=== PATIENT | female | born 1960 | race Caucasian/White ===

== ENCOUNTER → 2016-06-27 | Outpatient (CLI) | payer BC ==
--- NOTE | 2016-06-27 10:06 | REP ---
DIAGNOSTIC MAMMOGRAM RIGHT BREAST: Diagnostic mammogram right breast performed in the MLO and CC projections and compared to prior studies most recent of which is 11/24/2015. Two subcentimeter nodules in the upper outer quadrant of the right breast are stable. The more anterior and centrally located nodule is felt to represent a cyst by prior ultrasound 11/24/2015. No new nodules are seen and there are no clustered microcalcifications. IMPRESSION: ACR 3 probably benign. Two stable subcentimeter nodular opacities in the upper outer quadrant of the right breast. Recommend followup bilateral mammogram November 2016. BI-RADS/ACR category 3 mammogram. Probably benign findings. Initial short-term followup (usually 6 month) examination. This mammogram was interpreted with the aid of an FDA-approved computer-aided detection system. The patient states that she/he has not had a clinical breast exam in over a year. Patient letter M3. Signed by Seferino Horn MD 06/27/2016 04:21 P
== END ==
LOC: M RAD 09:20
PROVIDERS: ATTEND Nurse Practitioner Family
DX: R92.8 Other abnormal and inconclusive findings on diagnostic imaging of breast (principal)

== ENCOUNTER → 2018-02-14 | Outpatient (CLI) | payer BC | LOC: M WHC 12:41 | DX: Z12.31 Encounter for screening mammogram for malignant neoplasm of breast (principal); Z78.0 Asymptomatic menopausal state | CPT/HCPCS: 77067 ==

== ENCOUNTER → 2018-02-14 | Outpatient (REF) | payer BC ==
[2018-02-16 14:13] LABS: HPV HYBRID CAPTURE II Negative (Negative)
== END ==
LOC: M SFHCWAGY 13:27
DX: Z12.4 Encounter for screening for malignant neoplasm of cervix (principal)
CPT/HCPCS: G0123

== ENCOUNTER → 2019-04-23 | Outpatient (CLI) | payer BC ==
--- NOTE | 2019-04-23 12:45 | REPMRS ---
Patient History The patient states she had a clinical breast exam in 04/2019. Patient is postmenopausal. No known family history of cancer. Taking estrogen for 1 year. Digital Woman Screen Mammo: April 23, 2019 - Exam #: [id number] Bilateral CC and MLO view(s) were taken. Technologist: Ana Giron, Technologist Prior study comparison: February 14, 2018, bilateral digital woman screen mammo performed at [facility], [place]. January 22, 2017, digital mammo diagnostic bilateral, performed at [facility]. November 24, 2015, digital mammo diagnostic bilateral, performed at [facility]. FINDINGS: There are scattered fibroglandular densities. There has been no change in the appearance of the mammogram from the prior studies. There is a mild amount of scattered fibroglandular density which is fairly symmetric. There is no interval development of dominant mass, architectural distortion, or grouped microcalcification suggestive of malignancy. 3-D tomosynthesis shows no additional findings. Assessment: BI-RADS/ACR category 1 mammogram. Negative Mammogram. Recommendation Routine screening mammogram of both breasts in 1 year (for women over age 40). This patient's Lifetime Breast Cancer Risk is estimated at 9.2 %. This mammogram was interpreted with the aid of an FDA-approved computer-aided dectection system. Electronically Signed By: Pierre Hernandez MD 04/23/19 [id number]
== END ==
LOC: M WHC 09:23
PROVIDERS: ATTEND Nurse Practitioner Family
DX: Z12.31 Encounter for screening mammogram for malignant neoplasm of breast (principal)

== ENCOUNTER → 2019-07-05 | Outpatient (CLI) | payer BC | LOC: M LABSMTC 13:57 | PROVIDERS: ATTEND Family Medicine | DX: Z11.59 Encounter for screening for other viral diseases (principal); Z20.828 Contact with and (suspected) exposure to other viral communicable diseases ==

== ENCOUNTER → 2020-08-10 | Outpatient (CLI) | payer BC ==
--- NOTE | 2020-08-10 12:08 | REPMRS ---
Patient History The patient states she had a clinical breast exam in July 2020. No known family history of cancer. Taking estrogen for 1 year. No breast complaints today Patient signed the MRS sheet 1st covid vaccine 05/19/2022-[id number] does not remember which arm she had for either 2nd covid vaccine 07/01/20 Priors on PACS Patient Identification Verified Digital Woman Screen Mammo: August 10, 2020 - Exam #: [id number] Bilateral CC and MLO view(s) were taken. Technologist: Estephania Portillo, Technologist Prior study comparison: April 23, 2019, bilateral digital woman screen mammo performed at [facility]. February 14, 2018, bilateral digital woman screen mammo performed at [facility]. January 22, 2017, bilateral breast ultrasound unilateral limited, performed at [facility]. FINDINGS: There are scattered fibroglandular densities. The Volpara volumetric breast density category is:B. There is a grouping of microcalcifications in the subareolar region of the right breast which merits further evaluation. There has been no other change in the appearance of the mammogram from the prior studies. There is a mild amount of scattered fibroglandular density which is fairly symmetric. There is no other interval development of dominant mass, architectural distortion, or grouped microcalcification suggestive of malignancy. 3-D tomosynthesis shows no additional findings. Assessment: BI-RADS/ACR category 0 mammogram, Incomplete: Need additional imaging evaluation and/or prior mammograms for comparison. Recommendation Special view mammogram of the right breast (for women over age 40). This patient's [facility] Lifetime Breast Cancer Risk is estimated at 9.0 %. This mammogram was interpreted with the aid of an FDA-approved computer-aided dectection system. Electronically Signed By: Pierre Hernandez MD 08/10/20 [id number]
== END ==
LOC: M WHC 09:14
PROVIDERS: ATTEND Nurse Practitioner Women's Health
DX: R92.2 Inconclusive mammogram (principal)

== ENCOUNTER → 2020-08-10 | Outpatient (REF) | payer BC | LOC: M SFHCWAGY 13:23 | PROVIDERS: ATTEND Nurse Practitioner Women's Health | DX: Z12.4 Encounter for screening for malignant neoplasm of cervix (principal); R87.610 Atypical squamous cells of undetermined significance on cytologic smear of cervix (ASC-US) | CPT/HCPCS: 87624; G0123 ==

== ENCOUNTER → 2020-09-13 | Outpatient (CLI) | payer BC ==
--- NOTE | 2020-09-13 14:34 | REP ---
INDICATION: ADDL VIEWS/RIGHT BREAST. COMPARISON: Multiple, the latest prior screening examination of 08/10/2020 showed a grouping of calcifications in the right breast for which diagnostic digital magnified spot compression views were obtained in the CC and MLO projections TECHNIQUE: Diagnostic digital magnified spot compression views of the right breast were obtained in the CC and MLO projections over the region of interest seen on the prior screening exam. FINDINGS: There is a grouping of calcifications seen in the retroareolar region of the right breast which vary someone size, shape, and radiographic density. IMPRESSION: BIRADS/ACR category 4 mammogram. There is a grouping of calcifications seen in the right breast as described above for which biopsy is recommended. The patient letter being requested is M4 RECOMMENDATION: As above <Electronically signed by Clint Rose > 09/13/20 [id number]
== END ==
LOC: M WHC 13:48
PROVIDERS: ATTEND Nurse Practitioner Women's Health
DX: Z12.31 Encounter for screening mammogram for malignant neoplasm of breast (principal); R92.1 Mammographic calcification found on diagnostic imaging of breast
CPT/HCPCS: 77065; G0279

== ENCOUNTER → 2020-10-05 | Outpatient (CLI) | payer BC ==
[~2020-10-05] MED LIST: BASA100I SC; CLIM0.05 TD; ECOT81TA5 PO; LEVO100T5 PO; TRUL10IN SC
[2020-10-05 13:39] VITALS: BP 138/82
--- NOTE | 2020-10-05 14:22 | REP ---
INDICATION: R92.8 ABN MAMMO RT BREAST,STEREOTACTIC BIOPSY. COMPARISON: Comparison mammography September 13, 2020.. TECHNIQUE: Specimen radiography, two views. Right breast. FINDINGS: Specimen radiography demonstrates the target grouping contained within 2 of the removed specimens. IMPRESSION: The micro calcific target has been removed and is seen distributed in 2 of the removed specimens. <Electronically signed by Pierre Hernandez > 10/05/20 [id number]
--- NOTE | 2020-10-05 14:46 | REP ---
INDICATION: R92.8 ABN MAMMO RT BREAST,POST STEREOTACTIC BIOPSY. Marker clip placement views. COMPARISON: Comparison mammography is from September 13, 2020. TECHNIQUE: Craniocaudal and mediolateral oblique views of the right breast are obtained. FINDINGS: CC and mL post biopsy views of the right breast demonstrate that the microcalcifications which were the target of the biopsy have been removed. Marker clip is in good position. IMPRESSION: Marker clip in good position. Target microcalcifications have been removed. <Electronically signed by Pierre Hernandez > 10/05/20 [id number]
--- NOTE | 2020-10-05 16:56 | REP ---
INDICATION: R92.8 ABN MAMMO RT BREAST,STEREOTACTIC BIOPSY. COMPARISON: None. TECHNIQUE: The procedure was performed under the direct supervision of Dr. Hernandez. The patient has a history of a grouping of calcifications seen in the retroareolar region of the right breast seen on a previous mammogram dated 09/13/2020. The risks and benefits of the procedure were explained to the patient and informed consent was obtained. A craniocaudal approach was utilized. The calcifications were localized using stereotactic mammographic guidance. 10 mL of 1% Xylocaine was used as a local anesthetic. A 10 gauge, suction assisted Mammotome needle was inserted and 9 core biopsy samples were obtained. Specimen radiograph demonstrates the presence of calcifications to be within the specimen. A marker clip(HydroMARK shape 1) was placed at the biopsy site. The patient tolerated the procedure well and there were no immediate complications. After the appropriate amount of monitored convalescence, the patient was discharged from the department. EBL: Less than 3 cc FINDINGS: None IMPRESSION: Stereotactic right breast biopsy with marker clip placement.(HydroMARK shape 1) <Electronically signed by Tho aNvarro > 10/05/20 [id number] <Electronically signed by Pierre Hernandez > 10/05/20 [id number]
== END ==
LOC: M WHCPRO 06:38
PROVIDERS: ATTEND Nurse Practitioner Women's Health
DX: R92.1 Mammographic calcification found on diagnostic imaging of breast (principal)

== ENCOUNTER → 2021-10-31 | Outpatient (CLI) | payer BC | LOC: M WHC 11:05 | PROVIDERS: ATTEND Nurse Practitioner Family | DX: D25.9 Leiomyoma of uterus, unspecified (principal); N95.0 Postmenopausal bleeding; N88.8 Other specified noninflammatory disorders of cervix uteri ==

== ENCOUNTER → 2021-12-05 | Outpatient (REF) | payer BC | LOC: M SFHCWAGY 10:22 | PROVIDERS: ATTEND Specialist | DX: N95.0 Postmenopausal bleeding (principal) ==

== ENCOUNTER → 2022-03-17 | Outpatient (REF) | payer BC | LOC: M LAB REF 17:18 | PROVIDERS: ATTEND Internal Medicine Endocrinology, Diabetes & Metabolism | DX: E04.2 Nontoxic multinodular goiter (principal) ==